=== PATIENT | male | born 1985 | race Caucasian/White ===

== ENCOUNTER 2017-03-28 23:24 | Emergency (ER) | payer OTHER | END 2017-03-28 23:58 | disposition home or self-care (01) | LOC: ER 23:24 | DX: M25.522 Pain in left elbow (principal); G58.8 Other specified mononeuropathies; Z88.6 Allergy status to analgesic agent | CPT/HCPCS: 99282 ==

== ENCOUNTER 2017-04-26 12:12 | Emergency (ER) | payer OTHER | END 2017-04-26 12:50 | disposition home or self-care (01) | LOC: ER 12:12 | DX: M25.522 Pain in left elbow (principal); F17.210 Nicotine dependence, cigarettes, uncomplicated; Z88.6 Allergy status to analgesic agent; Z88.5 Allergy status to narcotic agent | CPT/HCPCS: 99282 ==